=== PATIENT | male | born 1970 | race Caucasian/White ===

== ENCOUNTER 2016-11-02 00:15 | Observation (INO) | payer OTHER ==
[~2016-11-02] VITALS: Ht 180.3 cm; Wt 205.6 kg
[2016-11-02] VITALS (7 sets, daily range): BP systolic 112–140; BP diastolic 51–80
[~2016-11-02 00:15] MED LIST: CELEBREX200 MG PO; CELEXA40 MG PO; ENBREL50 MG/1 ML SC; Enbrel SC; LISINOPRIL-HCT1 EAC3 PO; Omega III EPA + DHA PO; PRILOSEC40 MG PO; PriLOSEC PO; TACLONEX OINTME60 GM TP; Vicodin,Lortab 5/500 PO; XARELTO15 MG PO; celeBREX PO; celeXA PO
[2016-11-02 00:51] LABS: MCH 19.6 PG (29.0-34.0); MCHC 28.7 G/DL (30.0-36.0); MCV 68.3 FL (86-99); MEAN PLAT.VOLUME 8.2 uM^3 (9.0-12.4); NRBC (%) 0.3 /100 WBC (0-0); PLATELET COUNT 504 K/uL (156-360); RBC DIS.WIDTH-CV 17.5 % (11.8-14.6); RBC DIS.WIDTH-SD 42.1 % (39-53); RED BLOOD COUNT 4.54 M/uL (4.00-5.50); WHITE BLOOD COUNT 11.1 K/uL (4.1-10.2)
[2016-11-02 00:53] LABS: CHLORIDE 103 mEq/L (99-109); POTASSIUM 3.6 mEq/L (3.7-5.4); SODIUM 138 mEq/L (136-147)
[2016-11-02 00:55] LABS: GLUCOSE 114 mg/dL (70-99)
[2016-11-02 00:56] LABS: ANION GAP 11 MEQ/L (2-14)
[2016-11-02 00:59] LABS: GFR ESTIMATE (CALCULATED) > 59 mL/min/
[2016-11-02 01:00] LABS: UREA NITROGEN (BUN) 18 mg/dL (9-23)
[2016-11-02 01:05] LABS: TROP-I INTERPRETATION NEGATIVE; TROPONIN-I < 0.01 ng/mL (0.0-0.30)
[2016-11-02 04:35] LABS: INTER. NORMALIZED RATIO 1.1; PROTHROMBIN TIME 11.1 (9.2-11.2); PTT 27.6 (25-32)
[2016-11-02 04:49] LABS: TROP-I INTERPRETATION NEGATIVE; TROPONIN-I 0.02 ng/mL (0.0-0.30)
[2016-11-02 08:22] LABS: HEMATOCRIT 30.6 % (38.0-50.0); MCH 19.6 PG (29.0-34.0); MCHC 28.8 G/DL (30.0-36.0); MEAN PLAT.VOLUME 8.5 uM^3 (9.0-12.4); PLATELET COUNT 464 K/uL (156-360); RBC DIS.WIDTH-CV 17.4 % (11.8-14.6); RBC DIS.WIDTH-SD 41.8 % (39-53); WHITE BLOOD COUNT 10.3 K/uL (4.1-10.2)
[2016-11-02 08:37] LABS: TROP-I INTERPRETATION NEGATIVE; TROPONIN-I < 0.01 ng/mL (0.0-0.30)
[2016-11-02] MEDS ORDERED: OMEPRAZOLE40 M1 PO (09:16)
[2016-11-02] MEDS ORDERED: XARELTO20 MG PO (09:18)
[2016-11-02] MEDS ORDERED: REQUIP2 MG PO (09:18)
[2016-11-02 13:45] LABS: IRON 30 MCG/DL (35-150)
[2016-11-02 18:23] LABS: HEMATOCRIT 29.5 % (38.0-50.0); MCV 68.9 FL (86-99)
[2016-11-02 18:44] LABS: TROP-I INTERPRETATION NEGATIVE; TROPONIN-I < 0.01 ng/mL (0.0-0.30)
[2016-11-03 02:31] VITALS: BP 129/60
[2016-11-03 02:44] VITALS: BP 125/58
[2016-11-03 04:01] VITALS: BP 129/61
[2016-11-03 05:25] VITALS: BP 118/57
[2016-11-03 07:43] LABS: HEMATOCRIT 30.5 % (38.0-50.0); MCV 71.4 FL (86-99)
[2016-11-03 07:51] LABS: HEMATOCRIT 30.6 % (38.0-50.0); MCH 20.9 PG (29.0-34.0); MCHC 29.4 G/DL (30.0-36.0); MEAN PLAT.VOLUME 8.4 uM^3 (9.0-12.4); PLATELET COUNT 395 K/uL (156-360); RBC DIS.WIDTH-CV 18.6 % (11.8-14.6); RBC DIS.WIDTH-SD 47.6 % (39-53); RED BLOOD COUNT 4.31 M/uL (4.00-5.50); WHITE BLOOD COUNT 8.7 K/uL (4.1-10.2)
[2016-11-03 08:17] LABS: ALKALINE PHOSPHATASE 61 IU/L (3-129); ANION GAP 9 MEQ/L (2-14); CHLORIDE 106 MEQ/L (99-109); GFR ESTIMATE (CALCULATED) > 59 mL/min/; GLUCOSE 91 mg/dL (70-99); POTASSIUM 4.1 MEQ/L (3.7-5.4); SAMPLE HEMOLYSIS CHECK 0; SAMPLE ICTERIC CHECK 0; SAMPLE LIPEMIA CHECK 0; SODIUM 138 MEQ/L (136-147); TOTAL BILIRUBIN 0.6 MG/DL (0.0-1.0); UREA NITROGEN (BUN) 12 mg/dL (9-23)
[2016-11-03 08:51] LABS: FERRITIN 8 NG/ML (22-322)
[2016-11-03 09:00] VITALS: BP 125/55
== END 2016-11-03 12:50 | disposition home or self-care (01) ==
LOC: EME 00:15 → 5WEST 06:46 → EDOF 06:46 → 5WEST 11:40
PROVIDERS: Emergency Medicine; Family Medicine; Hospitalist
PROC: 0DB68ZX Excision of Stomach, Via Natural or Artificial Opening Endoscopic, Diagnostic (ICD-10-PCS; principal; 2016-11-02)
DX: K92.2 Gastrointestinal hemorrhage, unspecified (principal); D64.9 Anemia, unspecified; K25.9 Gastric ulcer, unspecified as acute or chronic, without hemorrhage or perforation; E66.01 Morbid (severe) obesity due to excess calories; Z68.44 Body mass index [BMI] 60.0-69.9, adult; G47.33 Obstructive sleep apnea (adult) (pediatric); Z86.718 Personal history of other venous thrombosis and embolism; Z79.01 Long term (current) use of anticoagulants; R07.9 Chest pain, unspecified; R53.1 Weakness; K21.9 Gastro-esophageal reflux disease without esophagitis; Z88.8 Allergy status to other drugs, medicaments and biological substances; Z88.5 Allergy status to narcotic agent; L40.9 Psoriasis, unspecified; Z98.84 Bariatric surgery status; M19.90 Unspecified osteoarthritis, unspecified site
CPT/HCPCS: 71020; 71275; 80048; 80053; 82728; 83540; 83880; 84466; 84484; 85014; 85018; 85027; 85610; 85730; 86900; 86901; 86920; 88305; 88342 TC; 93005; 93306; 99281; 99285; C9113; G0378; J2250; J7030; P9016